=== PATIENT | female | born 1975 | race Caucasian/White ===

== ENCOUNTER 2017-11-03 13:50 | Emergency (ER) | payer SELFPAY ==
[2017-11-03 14:25] LABS: Basophils % (Auto) 0.6 % (0.0-1.8); Eosinophils # (Auto) 0.2 K/mm3 (0.0-0.4); Eosinophils % (Auto) 2.8 % (0.0-4.3); Hematocrit 36.1 % (30.3-42.9); Hemoglobin 11.9 gm/dl (10.1-14.3); Lymphocytes # (Auto) 2.2 K/mm3 (1.2-5.4); Lymphocytes % (Auto) 32.5 % (13.4-35.0); Mean Corpuscular HGB Conc 33 % (30-34); Mean Corpuscular Volume 79 fl (79-97); Monocytes # (Auto) 0.7 K/mm3 (0.0-0.8); Monocytes % (Auto) 9.5 % (0.0-7.3); Platelet Count 309 K/mm3 (140-440); Red Cell Distribution Width 15.1 % (13.2-15.2)
[2017-11-03 14:26] LABS: Mean Corpuscular Hemoglobin 26 pg (28-32)
--- NOTE | 2017-11-03 15:00 | Emergency Department Report ---
ED Female HPI - General Chief complaint: Vaginal Bleeding Stated complaint: VAGINAL BLEEDING Time Seen by Provider: 11/03/17 14:46 Source: patient Mode of arrival: Ambulatory Limitations: Language Barrier - History of Present Illness Initial comments: 42-year-old speaks limited Persian 2 days of vaginal bleeding last normal menstrual period was 2 months ago with a ?positive home test, no care here for evaluation of vaginal bleeding. Patient has 3 living children, no other c/o, no syncop;e, no cp, no other c/o MD Complaint: vaginal bleeding, other (not soaking pads, not dizzy or orthostatic) -: unknown Severity: mild Quality: cramping Associated Symptoms: denies other symptoms. denies: vaginal discharge, abdominal pain, nausea/vomiting, fever/chills, headaches, loss of appetite, dysuria, hematuria, rash, seizure, shortness of breath, syncope, weakness - Related Data Allergies Allergy/AdvReac Type Severity Reaction Status Date / Time No Known Allergies Allergy Unverified 11/03/17 13:54 ED Review of Systems ROS: Stated complaint: VAGINAL BLEEDING Other details as noted in HPI Comment: All other systems reviewed and negative Constitutional: denies: diaphoresis, fever, malaise ENT: denies: dental pain, hearing loss, epistaxis Respiratory: denies: shortness of breath, SOB with exertion, SOB at rest, stridor Cardiovascular: denies: chest pain, palpitations, dyspnea on exertion, orthopnea , edema, syncope, paroxysmal nocturnal dyspnea Gastrointestinal: denies: abdominal pain, nausea, vomiting, diarrhea, constipation, hematemesis, melena Genitourinary: abnormal menses. denies: frequency, hematuria, discharge Neurological: denies: headache, weakness, numbness, paresthesias, confusion, abnormal gait, vertigo Hematological/Lymphatic: denies: easy bruising ED Past Medical Hx - Past Medical History Previous Medical History?: No - Social History Smoking Status: Never Smoker Substance Use Type: None ED Physical Exam - General Limitations: Language Barrier General appearance: alert, in no apparent distress - Head Head exam: Present: atraumatic, normocephalic - Eye Eye exam: Present: PERRL, EOMI - ENT ENT exam: Present: normal exam, normal orophraynx - Neck Neck exam: Present: normal inspection. Absent: tenderness, meningismus - Respiratory Respiratory exam: Present: normal lung sounds bilaterally. Absent: respiratory distress, wheezes, rales, rhonchi, stridor, chest wall tenderness, accessory muscle use, decreased breath sounds, prolonged expiratory - Cardiovascular Cardiovascular Exam: Present: regular rate, normal rhythm, normal heart sounds - GI/Abdominal GI/Abdominal exam: Present: soft. Absent: tenderness, guarding, rebound, rigid , mass, bruit, pulsatile mass - Extremities Exam Extremities exam: Present: normal inspection, normal capillary refill. Absent: tenderness, pedal edema, joint swelling - Back Exam Back exam: Present: normal inspection. Absent: CVA tenderness (L), muscle spasm , paraspinal tenderness, vertebral tenderness - Neurological Exam Neurological exam: Present: alert, oriented X3, CN II-XII intact. Absent: motor sensory deficit ED Course Vital Signs 11/03/17 11/03/17 11/03/17 13:54 14:30 14:37 Temperature 98.1 F Pulse Rate 79 68 Respiratory 16 18 Rate Blood Pressure 128/68 Blood Pressure 108/67 [Left] O2 Sat by Pulse 99 98 99 Oximetry 11/03/17 11/03/17 11/03/17 14:45 14:49 15:00 Temperature Pulse Rate Respiratory 18 Rate Blood Pressure 108/67 110/60 Blood Pressure [Left] O2 Sat by Pulse 99 100 Oximetry 11/03/17 11/03/17 11/03/17 15:45 16:00 16:15 Temperature Pulse Rate Respiratory Rate Blood Pressure 110/60 101/57 110/60 Blood Pressure [Left] O2 Sat by Pulse 88 100 100 Oximetry 11/03/17 16:31 Temperature Pulse Rate Respiratory Rate Blood Pressure 110/60 Blood Pressure [Left] O2 Sat by Pulse 100 Oximetry ED Medical Decision Making - Lab Data Result diagrams: 11/03/17 14:04 - Radiology Data Radiology results: report reviewed - Medical Decision Making Patient is us, found that shows fibroids and normal endometrium no IUP no adnexal mass no free fluid, no acute abd at this time, patient has stable vital signs H&H is normal she is not differential includes completed AB dysfunctional uterine bleeding and fibroids no history of positive test noted except patient thinks it may have positive at home a month ago unclear, if she was ever since seh never f/u, however there is no evidence of retained products she has normal endometrium is no IUP she is not here by our laboratory and does have fibroids on the ultrasound. She is to follow-up with [facility] not soaking pads stable for outpatient follow-up Critical care attestation.: If time is entered above; I have spent that time in minutes in the direct care of this critically ill patient, excluding procedure time. ED Disposition Clinical Impression: DUB (dysfunctional uterine bleeding), Fibroids Disposition: TO HOME OR SELFCARE Is pt being admited?: No Condition: Stable Instructions: Dysfunctional Uterine Bleeding (ED), Uterine Fibroids (ED) Additional Instructions: Return immediately if new alarming symptoms call 911 if worse and see the doctor listed Referrals: PRIMARY CAREMD [Primary Care Provider] - 3-5 Days THOMAS ZAMBRANO MD [Staff Physician] - 3-5 Days Time of Disposition: 17:46 Print Language: [place]
--- NOTE | 2017-11-03 16:32 | Ultrasound Report ---
FINAL REPORT PROCEDURE: US TRANSVAGINAL and transabdominal TECHNIQUE: Real-time transabdominal sonography in multiple planes of the pelvis was performed. The pelvic structures were not optimally visualized. Transvaginal sonography was then performed to better evaluate the structures and/or abnormalities described below with image documentation. Grayscale, color flow Doppler imaging and velocity spectral waveform analysis of the ovaries was employed (duplex imaging). CPT 85527, 51212, and 58033 HISTORY: abd pain/vaginal bleeding COMPARISON: No prior studies are available for comparison. FINDINGS: UTERUS Size: 8.6 x 4.2 x 5.9 cm. Endometrial thickness: 10 mm. Orientation: anteverted. Cervix: Normal. Fibroids/masses: 2 mural fibroids are present posteriorly, measuring up to 2 centimeters. RIGHT Ovary: 2.9 x 1.5 x 1.7 cm. Appearance: Normal. Doppler images: Normal spectral waveforms and color flow. The systolic and diastolic velocities are within normal limits. LEFT Ovary: Not visualized Pelvic fluid: None. Other: None. IMPRESSION: Small uterine fibroids PROCEDURE: TECHNIQUE: HISTORY: COMPARISON: FINDINGS: IMPRESSION:
--- NOTE | 2017-11-03 16:32 | Ultrasound Report ---
FINAL REPORT PROCEDURE: US TRANSVAGINAL and transabdominal TECHNIQUE: Real-time transabdominal sonography in multiple planes of the pelvis was performed. The pelvic structures were not optimally visualized. Transvaginal sonography was then performed to better evaluate the structures and/or abnormalities described below with image documentation. Grayscale, color flow Doppler imaging and velocity spectral waveform analysis of the ovaries was employed (duplex imaging). CPT 11599, 95400, and 08083 HISTORY: abd pain/vaginal bleeding COMPARISON: No prior studies are available for comparison. FINDINGS: UTERUS Size: 8.6 x 4.2 x 5.9 cm. Endometrial thickness: 10 mm. Orientation: anteverted. Cervix: Normal. Fibroids/masses: 2 mural fibroids are present posteriorly, measuring up to 2 centimeters. RIGHT Ovary: 2.9 x 1.5 x 1.7 cm. Appearance: Normal. Doppler images: Normal spectral waveforms and color flow. The systolic and diastolic velocities are within normal limits. LEFT Ovary: Not visualized Pelvic fluid: None. Other: None. IMPRESSION: Small uterine fibroids
[2017-11-03 18:31] VITALS: BP 112/54
== END 2017-11-03 18:32 | disposition home or self-care (01) ==
LOC: ED 13:50
DX: D25.9 Leiomyoma of uterus, unspecified (principal); N93.8 Other specified abnormal uterine and vaginal bleeding
CPT/HCPCS: 36415; 76830; 76856; 84702; 85025; 86850; 86900; 86901